=== PATIENT | female | born 1940 | race Caucasian/White ===

== ENCOUNTER 2016-10-09 04:17 | Inpatient (IN) | payer MEDICARE, BC ==
[2016-09-27 15:25] LABS: BASOPHILS 0.4 %; BASOPHILS ABSOLUTE 0.04 10/3/uL (0.0-0.16); EOSINOPHILS ABSOLUTE 0.51 10/3/uL (0.0-0.53); HEMATOCRIT 37.8 % (36.0-48.0); HEMOGLOBIN 12.3 g/dL (12.0-16.0); IMMATURE GRANULOCYTES 0.4 %; IMMATURE GRANULOCYTES ABSOLUTE 0.04 10/3/uL (0.0-0.11); LYMPHOCYTES ABSOLUTE 2.05 10/3/uL (0.67-4.30); MEAN CORPUS HGB CONC 32.5 g/dL (32.0-36.0); MEAN CORPUSCULAR HEMOGLOB 29.4 pg (26.0-34.0); MEAN CORPUSCULAR VOLUME 90.2 fL (80-100); MEAN PLATELET VOLUME 9.6 fL (9.2-13.0); MONOCYTES 10.3 %; MONOCYTES ABSOLUTE 1.05 10/3/uL (0.21-1.20); NEUTROPHILS 63.9 %; NEUTROPHILS ABSOLUTE 6.55 10/3/uL (2.02-8.40); PLATELET COUNT 267 10/3/uL (150-400); RBC DISTRIBUTION WIDTH 13.5 % (12.0-16.0); RED CELL COUNT 4.19 10/6/uL (4.0-5.6); WHITE BLOOD CELLS 10.2 10/3/uL (4.5-10.5)
[2016-09-27 15:26] LABS: MANUAL DIFF NO %
[2016-09-27 15:31] LABS: PARTIAL THROMBO TIME 27.3 SEC (22.5-37.2); PROTIME (NOT ORD) 12.9 SEC (12.0-14.5)
[2016-09-27 15:44] LABS: A/G RATIO 1.1 (0.7-1.9); ALBUMIN 3.8 G/DL (3.5-5.0); ALKALINE PHOSPHATASE 81 U/L (45-117); BUN (BLOOD UREA NITROGEN) 14 MG/DL (6-23); CALCIUM, SERUM 9.1 MG/DL (8.5-10.4); CHLORIDE, SERUM 99 MMOL/L (96-112); CO2 (CARBON DIOXIDE) 28 MMOL/L (24-34); CREATININE 0.75 MG/DL (0.55-1.02); GFR AFRICAN AMERICAN 91 ML/MIN (>=60); GFR NON AFRICAN AMERICAN 79 ML/MIN (>=60); GLOBULIN 3.6 G/DL (2.5-4.1); GLUCOSE, SERUM 88 MG/DL (60-99); SGPT(ALT) 19 U/L (5-65); SODIUM, SERUM 135 MMOL/L (135-148); TOTAL BILIRUBIN 0.4 MG/DL (0-1.2); TOTAL PROTEIN 7.4 G/DL (6.0-8.5)
[2016-09-27 15:51] LABS: POTASSIUM, SERUM 5.3 MMOL/L (3.5-5.3); SGOT(AST) 28 U/L (5-40)
[2016-09-27 16:28] LABS: ASCORBIC ACID (UR NOT ORDER) 40 (NEG); BILIRUBIN, URINE NEGATIVE (NEG); KETONE, URINE NEGATIVE (NEG); LEUKOCYTE ESTERASE(NOT OR NEG (NEG); WBC (NOT ORDERED) (RFLEX) < 1 (0-5)
--- NOTE | ~2016-10-09 | OP ---
Record Of Operation [facility] [address] [place]. 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 PROCEDURE: Right reverse shoulder arthroplasty. SURGEON: Junaid Clarke M.D. COMPLICATIONS: None. ANESTHESIA: General endotracheal with regional block per Anesthesia. ESTIMATED BLOOD LOSS: 150. FLUIDS: Crystalloid. IMPLANTS: Lori BF reverse. INDICATIONS: This 75-year-old female is known to me. She had a cuff tear in the past and ended up having a nonoperative treatment. She then presented with acute worsening and pseudoparesis and was found to have an irreparable cuff tear. She had cervical surgery as well and some generalized deconditioning. We discussed the risks, benefits, and alternatives including bleeding, infection, blood clots, need for further surgery. She verbalized understanding and wished to proceed with operative intervention. PROCEDURE IN DETAIL: The patient was induced in the supine position. She was taken to the beach-chair position with care to maintain cervical lordosis. A time-out protocol was enforced. Ancef was administered. The deltopectoral approach was utilized. The cephalic vein was taken laterally. The pectoralis was released. There was a high falciform ligament. This was released. There was severe scarring under the subdeltoid plane which was lysed with a Bovie. A Nelson retractor was placed. The subscap was severely deficient and the cuff was gone. We tacked the subscap remnant and released along the capsule externally rotating. We dissected between the straps in the subscap and palpated and protected the axillary nerve while releasing the inferior capsule with a nonconductive skid for protection. The Bovie was used to release the capsule in the middle and inferior glenohumeral ligaments were used to release the anterior capsule. We removed the osteophytes and reamed up to a 13 intramedullary reamer. The head cut was made in 20 degrees of retroversion. We then placed the stem and turned attention to the Record Of Operation [facility] [address] [place]. [address] NAME: RADHA RANDOLPH : 42 STATUS : ADM IN PAT#: [id number] AGE: 75 ADM/REG DATE : 10/09/16 MR#: [id number] REPORT SERV DATE: 10/09/16 DICTATED BY: JUNAID CLARKE. DATE: 10/09/16 REPORT STATUS : Draft TRANSCRIBED BY: MODDevaughn DATE: 10/09/16 glenoid. A Fukuda retractor was placed. A John was used to remove the labrum circumferentially but released inferiorly the triceps head. The mechanical access of the glenoid was ascertained by palpation and targeted. We reamed it and drilled for a 15 mm trabecular metal base plate. This was impacted. We selected 36 mm screws and placed them in locking mode, 36 mm glenosphere was then carefully placed. This was somewhat of a tight joint. We carefully observed the glenosphere seat. We then impacted that and tested it and it appeared to be in good position. We then trialed a 0 poly which was satisfactory and we placed a FiberWire around the stem and impacted the stem in 20 degrees of retroversion and reduced it, irrigated copiously with pulsatile lavage and tranexamic acid. Hemovac drain was placed to close the subscap with fiber wires and closed the deltopectoral interval with monofilament locking suture. The wound was then closed in layers. The patient tolerated the procedure well, was taken to the PACU in stable condition. POSTOPERATIVE PLAN: Reverse shoulder protocol. SHAWNA/AMILCAR Junaid Clarke M.D. / [id number]
[~2016-10-09 04:17] MED LIST: ACET500CAP PO; ALEVE220 MG PO; ASAB PO; B COMPLEX PO; BEN25 PO; CALTRA600D PO; COQ10 PO; COZAAR100 MG PO; CYMBALTA60 PO; DCN100 PO; ESTRACE0.5 MG PO; FISH OIL PO; FISH OIL1200 MG PO; FLONASE NAS; GAS-X80 MG PO; LEVAQUIN750 MG PO; LIPOTRIAD1 CAP PO; LYRICA300 MG PO; METHOC750B PO; MULTIVIT/MIN PO; MULTIVITAMIN PO; NEUR300 PO; NEUR800 PO; P20 PO; PEP20 PO; POTASSIUM GLUCONATE PO; POTASSIUM PO; PREM.3B PO; PSEUDOEPHEDR60 MG PO; SALONPAS-HOT TOP; STOOL SOFTNER PO; TESS PO; TRAZ100 PO; TRAZ50 PO; VIT D PO; VITAMIN C PO; VITAMIN D31000 UNIT PO; [UNRECOGNIZED DRUG - REMARK] PO
[2016-10-10 05:41] LABS: HEMOGLOBIN 10.3 g/dL (12.0-16.0)
[2016-10-10 05:42] LABS: HEMATOCRIT 31.4 % (36.0-48.0)
[2016-10-10 05:58] LABS: BUN (BLOOD UREA NITROGEN) 13 MG/DL (6-23); CALCIUM, SERUM 8.3 MG/DL (8.5-10.4); CHLORIDE, SERUM 106 MMOL/L (96-112); CO2 (CARBON DIOXIDE) 25 MMOL/L (24-34); CREATININE 0.62 MG/DL (0.55-1.02); GFR AFRICAN AMERICAN 103 ML/MIN (>=60); GFR NON AFRICAN AMERICAN 89 ML/MIN (>=60); GLUCOSE, SERUM 103 MG/DL (60-99); SODIUM, SERUM 138 MMOL/L (135-148)
[2016-10-10 05:59] LABS: POTASSIUM, SERUM 3.8 MMOL/L (3.5-5.3)
[2016-10-10] MEDS ORDERED: NORCO1 TA1 PO (11:20)
[2016-10-10] MEDS ORDERED: ASA5GR PO (11:20)
[2016-10-10] MEDS ORDERED: PR25 PO (11:20)
== END 2016-10-10 12:52 | disposition home or self-care (01) | DRG 483 ==
LOC: SDC/OF 04:17 → PACU 08:38 → 3SO 09:41
PROVIDERS: Orthopaedic Surgery Sports Medicine
PROC: 0RRJ00Z Replacement of Right Shoulder Joint with Reverse Ball and Socket Synthetic Substitute, Open Approach (ICD-10-PCS; principal; 2016-10-09 05:30)
DX: M75.121 Complete rotator cuff tear or rupture of right shoulder, not specified as traumatic (principal); I10 Essential (primary) hypertension; R29.818 Other symptoms and signs involving the nervous system; M79.7 Fibromyalgia
CPT/HCPCS: 36415; 73030-RT; 80048; 80053; 81001; 85014; 85018; 85025; 85610; 85730; 86850; 86900; 86901; 87641; 88305; 88311; 93005; 97161-GP; 97530-GP; A9270-GY; C1713; C1776; G8978-CK-GP; G8979-CI-GP; J1580; J2250; J2270; J2370; J2405; J2710; J2795; J3010; J3370